=== PATIENT | male | born 1945 | race Caucasian/White ===

== ENCOUNTER → 2021-10-12 | Outpatient (CLI) | payer OTHER ==
[~2021-10-12] MED LIST: ADULT LOW DOSE81 MG PO; AMLODIPINE BESYL5 MG PO
== END ==
LOC: OPSV2 09:00
DX: Z01.810 Encounter for preprocedural cardiovascular examination (principal); K40.91 Unilateral inguinal hernia, without obstruction or gangrene, recurrent; R94.31 Abnormal electrocardiogram [ECG] [EKG]
CPT/HCPCS: 93005

== ENCOUNTER → 2021-10-27 | Day surgery (SDC) | payer OTHER | END | disposition home or self-care (01) | LOC: OR 07:30 | DX: K40.90 Unilateral inguinal hernia, without obstruction or gangrene, not specified as recurrent (principal); I10 Essential (primary) hypertension; F17.200 Nicotine dependence, unspecified, uncomplicated; Z20.822 Contact with and (suspected) exposure to COVID-19 | CPT/HCPCS: C1781; J0690; J1100; J1170; J2405; J2704; J3010; J7030; J7120 ==